=== PATIENT | male | born 1965 | race Caucasian/White ===

== ENCOUNTER 2023-12-12 23:31 | Inpatient (IN) | payer MEDICARE, MEDICAID ==
[2023-12-13] MEDS ORDERED: Nitroglycerin 0.4 MG TAB (25 Tab Bottle) SL PRN (01:53)
[2023-12-13] MEDS ORDERED: Senokot S 8.6-50 MG TAB PO PRN (01:55)
[2023-12-13] MEDS ORDERED: Calcium Carbonate 500 MG ChewTAB PO PRN (01:55)
[2023-12-13] MEDS ORDERED: traZODone HCl 50 MG TAB PO PRN (01:57)
[2023-12-13 02:43] LABS: #Basophils 0.1 thou/uL (0.0-0.2); #Eosinphils 0.1 thou/uL (0.0-0.7); #Neutrophils 4.8 thou/uL (1.40-6.50); %Basophils 0.8 % (0.0-1.0); %Eosinophils 1.1 % (0.0-10.0); %Lymphocytes 20.4 % (21.0-51.0); %Monocytes 12.8 % (0.0-10.0); %Neutrophils 64.5 % (42.0-75.0); Hematocrit 32.7 % (42.0-52.0); Mean Corpuscular HGB CONC 30.6 g/dL (32.0-36.0); Mean Corpuscular Hemoglobin 20.2 pg (27.0-31.0); Mean Corpuscular Volume 66.2 fl (78.0-98.0); Mean Platelet Volume 10.7 fL (7.4-10.4); Platelet Count 233 10x3/uL (130-400); RBC Distribution Width 15.6 % (11.5-14.5); Red Blood Cell (RBC) Count 4.94 mill/uL (4.70-6.10); White Blood Cell (WBC) Count 7.4 10x3/uL (4.8-10.8)
[2023-12-13 03:07] LABS: ALT (SGPT) 9 U/L (8-55); AST (SGOT) 8 U/L (5-34); Albumin 3.8 g/dL (3.5-5.0); Alkaline Phosphatase 48 U/L (40-110); Anion Gap 13 mmol/L (10-20); BUN (Urea Nitrogen) 10 mg/dL (8.4-25.7); Bilirubin, Total 0.4 mg/dL (0.2-1.2); Calc. Creatinine Clearance 0 mL/min (70-130); Calcium 8.3 mg/dL (7.8-10.44); Carbon Dioxide 25 mmol/L (22-29); Chloride 101 mmol/L (98-107); Estimated GFR 75; Globulin 2.5 g/dL (2.4-3.5); Glucose 116 mg/dL (70-105); Iron 12 ug/dL (65-175); Iron Binding Capacity, Total 438 mcg/dL (261-462); Protein, Total 6.3 g/dL (6.0-8.3); Sodium 136 mmol/L (136-145)
[2023-12-13 03:16] LABS: Troponin I 0.112 ng/mL (< 0.028)
[2023-12-13] MEDS ORDERED: Electrolyte Replacement Protocol 1 EACH FS PRN (03:23)
[2023-12-13 03:30] LABS: Thyroid Stimulating Hormone 2.6232 uIU/mL (0.35-4.94)
[2023-12-13 04:50] LABS: Ferritin 36.38 ng/mL (22-322)
[2023-12-13] MEDS: Furosemide 20 MG (2 mL) VIAL SLOW IVP SCH (05:11)
[2023-12-13] MEDS: Magnesium 2 GM/50 ML(in water) 2 GM in Premix 1 BAG IVPB SCH (05:11)
[2023-12-13] MEDS: Potassium Chloride 20 MEQ TAB PO SCH ×2 (05:12→22:35)
[2023-12-13 05:39] LABS: Cardiac Risk 4.5 (Less than 4.5)
[2023-12-13 05:43] LABS: Troponin I 0.114 ng/mL (< 0.028)
[2023-12-13 06:32] VITALS: BMI 27.4
[2023-12-13] MEDS: Tamsulosin HCl 0.4 MG CAP PO SCH (08:26)
[2023-12-13] MEDS: Apixaban 5 MG TAB PO SCH (08:26)
[2023-12-13] MEDS: Montelukast Sodium 10 mg Tablet PO SCH (08:26)
[2023-12-13] MEDS: Aspirin Chewable 81 MG TAB PO SCH (08:27)
[2023-12-13] MEDS: Famotidine 20 MG TAB PO SCH (08:27)
[2023-12-13] MEDS: Metoprolol Tartrate 50 MG TAB PO SCH (08:28)
[2023-12-13] MEDS: Lisinopril 20 MG TAB PO SCH (08:28)
[2023-12-13] MEDS ORDERED: Metoprolol Tartrate 50 MG TAB PO SCH (09:00)
[2023-12-13] MEDS: Ondansetron ODT 4 MG TAB PO PRN (13:30)
[2023-12-13 14:20] LABS: Potassium 3.2 mmol/L (3.5-5.1)
[2023-12-13] MEDS: Atorvastatin Calcium 40 MG TAB PO SCH (20:06)
[2023-12-13] MEDS: Acetaminophen 325 MG TAB PO PRN (21:18)
[2023-12-13] MEDS ORDERED: hydrALAZINE 20 MG/ML VIAL SLOW IVP PRN (21:42)
[2023-12-14 04:50] LABS: #Basophils 0.1 thou/uL (0.0-0.2); #Eosinphils 0.2 thou/uL (0.0-0.7); #Monocytes 0.9 thou/uL (0.11-0.59); #Neutrophils 4.5 thou/uL (1.40-6.50); %Basophils 1.2 % (0.0-1.0); %Eosinophils 2.8 % (0.0-10.0); %Lymphocytes 23.8 % (21.0-51.0); %Monocytes 12.4 % (0.0-10.0); %Neutrophils 59.4 % (42.0-75.0); Hematocrit 35.3 % (42.0-52.0); Hemoglobin 10.3 g/dL (14.0-18.0); Mean Corpuscular HGB CONC 29.2 g/dL (32.0-36.0); Mean Corpuscular Hemoglobin 19.9 pg (27.0-31.0); Mean Corpuscular Volume 68.1 fl (78.0-98.0); Mean Platelet Volume 11.4 fL (7.4-10.4); Platelet Count 229 10x3/uL (130-400); RBC Distribution Width 15.9 % (11.5-14.5); Red Blood Cell (RBC) Count 5.18 mill/uL (4.70-6.10); White Blood Cell (WBC) Count 7.6 10x3/uL (4.8-10.8)
[2023-12-14 05:40] LABS: Anisocytosis SLIGHT = 6-15 cells HPF (0-5); CellaVision Operator ID lab.sh2; Hypochromia SLIGHT = 6-15 cells HPF (0-5); Microcytosis SLIGHT = 6-15 cells HPF (0-5); Ovalocytes SLIGHT = 2-5 cells HPF (0-1); Platelet Adequacy Comment Platelets Normal; Polychromasia SLIGHT = 2-3 cells HPF (0-2)
[2023-12-14 05:43] LABS: Anion Gap 13 mmol/L (10-20); BUN (Urea Nitrogen) 8 mg/dL (8.4-25.7); Calc. Creatinine Clearance 81 mL/min (70-130); Calcium 8.8 mg/dL (7.8-10.44); Carbon Dioxide 26 mmol/L (22-29); Chloride 100 mmol/L (98-107); Estimated GFR 78; Glucose 99 mg/dL (70-105); Magnesium 2.1 mg/dL (1.6-2.6); Potassium 3.4 mmol/L (3.5-5.1); Sodium 136 mmol/L (136-145)
[2023-12-14] MEDS: Potassium Chloride 20 MEQ TAB PO SCH (08:17)
[2023-12-14] MEDS ORDERED: Communication Order-Pharmacy FS SCH (09:22)
[2023-12-14 09:38] LABS: Hematocrit 36.3 % (42.0-52.0); Hemoglobin 10.6 g/dL (14.0-18.0); Platelet Count 221 10x3/uL (130-400)
[2023-12-14] MEDS: Enoxaparin 80 MG (0.8 mL) SYRINGE SC SCH (10:24)
[2023-12-14 12:45] LABS: Potassium 4.1 mmol/L (3.5-5.1)
[2023-12-14] MEDS ORDERED: Enoxaparin 80 MG (0.8 mL) SYRINGE SC SCH (21:00)
[2023-12-15 04:51] LABS: Anion Gap 12 mmol/L (10-20); BUN (Urea Nitrogen) 9 mg/dL (8.4-25.7); Calc. Creatinine Clearance 79 mL/min (70-130); Calcium 8.6 mg/dL (7.8-10.44); Carbon Dioxide 26 mmol/L (22-29); Chloride 100 mmol/L (98-107); Estimated GFR 77; Glucose 97 mg/dL (70-105); Potassium 3.5 mmol/L (3.5-5.1); Sodium 134 mmol/L (136-145)
[2023-12-15] MEDS: Potassium Chloride 20 MEQ TAB PO SCH (10:15)
[2023-12-15] MEDS ORDERED: Regadenoson 0.4 MG/5 ML SYRINGE ONE (11:28)
[2023-12-15] MEDS: GoLYTELY 4,000 ml Bottle PO SCH (18:07)
[2023-12-16 03:52] LABS: #Basophils 0.1 thou/uL (0.0-0.2); #Eosinphils 0.2 thou/uL (0.0-0.7); #Monocytes 0.8 thou/uL (0.11-0.59); #Neutrophils 3.3 thou/uL (1.40-6.50); %Eosinophils 2.6 % (0.0-10.0); %Neutrophils 53.2 % (42.0-75.0); Hematocrit 32.5 % (42.0-52.0); Hemoglobin 9.5 g/dL (14.0-18.0); Mean Corpuscular HGB CONC 29.2 g/dL (32.0-36.0); Mean Corpuscular Hemoglobin 19.9 pg (27.0-31.0); Mean Platelet Volume 10.6 fL (7.4-10.4); Platelet Count 204 10x3/uL (130-400); RBC Distribution Width 15.8 % (11.5-14.5); Red Blood Cell (RBC) Count 4.78 mill/uL (4.70-6.10); White Blood Cell (WBC) Count 6.2 10x3/uL (4.8-10.8)
[2023-12-16 04:13] LABS: Anion Gap 15 mmol/L (10-20); BUN (Urea Nitrogen) 7 mg/dL (8.4-25.7); Calc. Creatinine Clearance 74 mL/min (70-130); Calcium 8.2 mg/dL (7.8-10.44); Carbon Dioxide 25 mmol/L (22-29); Chloride 99 mmol/L (98-107); Estimated GFR 77; Glucose 87 mg/dL (70-105); Potassium 3.5 mmol/L (3.5-5.1); Sodium 135 mmol/L (136-145)
[2023-12-16] MEDS ORDERED: Midazolam HCl 2 mg/2 ml Vial ONE (10:06)
[2023-12-16] MEDS ORDERED: PROPOFOL 200 MG/20 ML VIAL ONE (10:16)
[2023-12-16] MEDS: Potassium Chloride 20 MEQ TAB PO SCH (11:53)
[2023-12-16 15:58] VITALS: BP 149/70; TEMP 97.6
[2023-12-16] MEDS ORDERED: Enoxaparin 80 MG (0.8 mL) SYRINGE SC SCH (21:00)
== END 2023-12-16 17:45 | disposition home or self-care (01) | DRG 812 ==
LOC: 2SW 12-13 01:36 → OBSVTOIN 12-15 11:09
PROVIDERS: ADMIT Student in an Organized Health Care Education/Training Program; ATTEND Internal Medicine
PROC: 0D568ZZ Destruction of Stomach, Via Natural or Artificial Opening Endoscopic (ICD-10-PCS; principal; 2023-12-16)
PROC: 0DBH8ZZ Excision of Cecum, Via Natural or Artificial Opening Endoscopic (ICD-10-PCS; 2023-12-16)
DX: D50.9 Iron deficiency anemia, unspecified (principal); E87.1 Hypo-osmolality and hyponatremia; R07.89 Other chest pain; E87.6 Hypokalemia; E78.5 Hyperlipidemia, unspecified; I48.0 Paroxysmal atrial fibrillation; I10 Essential (primary) hypertension; R19.5 Other fecal abnormalities; I08.1 Rheumatic disorders of both mitral and tricuspid valves; K44.9 Diaphragmatic hernia without obstruction or gangrene; F20.9 Schizophrenia, unspecified; R79.89 Other specified abnormal findings of blood chemistry; G31.84 Mild cognitive impairment of uncertain or unknown etiology; Z98.890 Other specified postprocedural states; Z90.89 Acquired absence of other organs; K31.819 Angiodysplasia of stomach and duodenum without bleeding
CPT/HCPCS: 36415; 36416; 78452; 80048; 80053; 80061; 82274; 82728; 83540; 83550; 83735; 83880; 84443; 84484; 85025; 88305; 93017; 94760; 96372; 96374; 96375; 96376; A9502; G0378; J1650; J1940; J2250; J2704; J2785; J3475; Q0162